=== PATIENT | male | born 1995 | race African-American/Black ===

== ENCOUNTER 2022-05-05 17:41 | Emergency (ER) | payer SELFPAY ==
[2022-05-05 17:48] VITALS: BP 115/51; PULSE 93; RESP 15; TEMP 36.5; O2SAT 96
[2022-05-05 18:51] LABS: Bilirubin Small (Negative); Blood Large (Negative); Clarity Clear (Clear); Glucose Negative (Negative); Ketones 80 mg/dL (Negative); Leukocyte Esterase Negative (Negative); Nitrite Negative (Negative); Specific Gravity >= 1.030 (1.005-1.025); Urobilinogen 0.2 mg/dL (Up to 0.2)
[2022-05-05 19:01] LABS: Bacteria Negative HPF (Negative); C & S Indicated? No; Casts Negative LPF (Negative); Crystals Negative HPF (Negative); Epithelial Cells Rare HPF (Negative); Mucus Moderate (Negative); Other Cells Negative (Negative); RBC 20-50 HPF (0-2); WBC 0-2 HPF (0-5)
--- NOTE | 2022-05-05 19:23 | ED.GENADUL_ITS ---
Discharge Plan Disposition Patient Disposition: Home Condition: Stable Discharge Details Clinical Impression: Acute flank pain Primary Care Provider: Gabrielle,Local ED Provider: Melissa St Home Meds and New Rx's Prescriptions: No Action No Known Home Meds Discharge Instructions Instructions: Flank Pain (ED) Additional Instructions: We talked about ordering a CAT scan, secondary to financial reasons we will hold on this for now at your discretion Please increase your fluid intake, at least ten 8 ounce glasses of water daily Strain your urine, we will supply you with a strainer Ibuprofen and Tylenol as needed for pain Return earlier should you have new or worsening complaints including return of pain Establish with a primary care physician when you return home Discharge Data Discharge Date/Time-TO BE ENTERED AT DEPARTURE: 05/05/22 19:48 Medical Decision Making Patient presents with right flank pain which is since resolved, lasted approximately half an hour. He has a urinalysis that shows evidence of 30-50 red blood cells, no evidence of secondary urinary tract infection, I did recommend CT and diagnostic labs however patient states he does not have insurance and prefers that we do not undergo test that we will increase the cost of his encounter I did discuss risk benefit and as patient is calm and Comfortable, he will return immediately should the pain return He is aware that he may have a kidney stone or other pathology that we would only be able to diagnose on CT scan He has been pain-free throughout this encounter He is given a strainer and encouraged to hydrate He is also encouraged to follow-up with his primary care physician when he returns home Return precautions reviewed in detail and patient expressed understanding HPI General Date/Time Provider Initiated Documentation: 05/05/22 18:01 . 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 He denies any fever or chills. He denies any abdominal pain anteriorly. He denies any nausea or vomiting. States he has a history of a kidney stone as a child. Related Data Home Medications Medication Instructions Recorded Confirmed Unknown [No Known Home Meds] 05/05/22 05/05/22 Allergies Allergy/AdvReac Type Severity Reaction Status Date / Time No Known Allergies Allergy Unverified 05/05/22 17:53 General Stated Complaint: FlankPain GARCIA: 3 PFSH All Active Problems (Updated 05/05/22 @ 19:24 by ALAN Mondragon) Acute flank pain (Acute) Social History Smoking/Tobacco Use Status: Current every day Tobacco Type: e-cigarettes Smoking risk assessment performed?: Yes Alcohol Intake: current Alcohol Intake frequency: holidays/special occasions only Drug use: Never Substance use type: does not use Do you feel safe at home: Yes Do you feel safe in your relationship?: Yes Exam Narrative Exam Narrative: Patient presents calm and cooperative, no acute distress, no tachypnea, no tachycardia, no CVA tenderness, no anterior abdominal tenderness Course Vital Signs Vital signs: Vital Signs Temperature 36.5 C 05/05/22 17:48 Pulse 93 H 05/05/22 17:48 Respiratory Rate 15 05/05/22 17:48 Blood Pressure 115/51 L 05/05/22 17:48 Pulse Oximetry 96 05/05/22 17:48 Temperature 36.5 C 05/05/22 17:48 Temperature Source Tympanic 05/05/22 17:48 Pulse 93 H 05/05/22 17:48 Respiratory Rate 15 05/05/22 17:48 Respiratory Effort Normal 05/05/22 17:52 Blood Pressure 115/51 L 05/05/22 17:48 Blood Pressure Position Sitting 05/05/22 17:48 Pulse Oximetry 96 05/05/22 17:48 Oxygen Delivery Method Room Air 05/05/22 17:48 Oxygen Flow Rate 0 05/05/22 17:48 Pain Level 0 05/05/22 17:52 Lab/Test Results Lab/Test Results: Laboratory Tests Range/Units 05/05/22 18:40 Urine Color (Yellow) Yellow Urine Clarity (Clear) Clear Urine pH (5-8) 6.0 Ur Specific [place] (1.005-1.025) >= 1.030 H Urine Protein (Negative) mg/dL Trace H Urine Ketones (Negative) mg/dL 80 H Urine Blood (Negative) Large H Urine Nitrite (Negative) Negative Urine Bilirubin (Negative) Small H Urine Urobilinogen (Up to 0.2) mg/dL 0.2 Ur Leukocyte Esterase (Negative) Negative Urine RBC (0-2) HPF 20-50 H Urine WBC (0-5) HPF 0-2 Ur Epithelial Cells (Negative) HPF Rare Urine Crystals (Negative) HPF Negative Urine Bacteria (Negative) HPF Negative Urine Casts (Negative) LPF Negative Urine Mucus (Negative) Moderate Urine Other (Negative) Negative Ur Culture Indicated? No Urine Glucose (Negative) mg/dL Negative PAWSS Have you Been Recently Intoxicated or Drunk Within the Last 30 days?: No Have you Ever Experienced Previous Episodes of Alcohol Withdrawal?: No Have you ever Experienced Withdrawal Seizures?: No Have you ever Experienced Delirium Tremens(DT)s?: No Have you ever undergone Alcohol Rehabilitation Treatment (i.e, inpt ot outpatient treatment programs)?: No Have you ever Experienced Blackouts?: No Have you ever Combined Alcohol with other Downers within the last 90 days?: No Have you ever Combined Alcohol with any other Substance of Abuse during the last 90 days?: No Result: 0
[2022-05-05 19:45] VITALS: BP 110/64; PULSE 68; RESP 14; O2SAT 99
--- NOTE | 2022-05-05 20:42 | NUR.NOTE ---
Referral to Care Management, patient arrived via ambulance from his [facility] [address]. 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
== END 2022-05-05 19:48 | disposition home or self-care (01) ==
PROVIDERS: Emergency Provider Physician Assistant
DX: R10.9 Unspecified abdominal pain (principal)
CPT/HCPCS: 99282; 81003; 81015